=== PATIENT | male | born 1960 | race Caucasian/White ===

== ENCOUNTER 2019-09-10 08:16 | Day surgery (SDC) | payer BC, OTHER ==
[2019-09-09 15:21] VITALS: BMI 30.8
[2019-09-10 10:25] VITALS: TEMP 98.2
[2019-09-10 10:29] VITALS: BP 103/60; PULSE 70
--- NOTE | 2019-09-13 16:15 | PATH ---
Surgical Pathology Report Patient Name: ROSY RATLIFF [facility]. Rec. #: [id number] /Age/Gender: 1960 (Age: 58) / M Account: [id number] Location: [facility]-ENDOSCOPY Taken: 09/10/2019 Received: 09/10/2019 Reported: 09/13/2019 Physicians: Andrea Brooke M.D. Specimen(s) Received ESOPHAGUS AT 29CM Clinical History Barretts esophagus Postoperative diagnosis: Davey's Final Diagnosis ESOPHAGUS AT 29 CM, BIOPSY: SQUAMOUS AND GLANDULAR MUCOSA WITH MILD CHRONIC INFLAMMATION AND INTESTINAL METAPLASIA, CONSISTENT WITH DAVEY'S ESOPHAGUS IN THE PROPER CLINICAL SETTINGS. NEGATIVE FOR DYSPLASIA. Electronically Signed Karthik Gutiérrez M.D. Gross Description Received in formalin, labeled "biopsy esophagus at 29 cm" are 2 lehman, irregular portions of soft tissue measuring 0.2 and 0.3 cm. in greatest dimension. The specimens are submitted in toto in one cassette. 09/10/2019 [facility]09/10/2019
== END 2019-09-10 10:15 | disposition home or self-care (01) ==
LOC: JASU-ENDO 08:16
PROVIDERS: ATTEND Internal Medicine Gastroenterology
PROC: 0DB38ZX Excision of Lower Esophagus, Via Natural or Artificial Opening Endoscopic, Diagnostic (ICD-10-PCS; principal; 2019-09-10 09:00)
DX: Z13.810 Encounter for screening for upper gastrointestinal disorder (principal); K22.70 Barrett's esophagus without dysplasia
CPT/HCPCS: 88305-TC